=== PATIENT | male | born 1945 | race Caucasian/White ===

== ENCOUNTER 2020-05-30 06:11 | Inpatient (IN) ==
[2020-05-30] MEDS ORDERED: Ringers Solution, Lactated 1,000 ML IVC SCH ×2 (06:30→06:45)
[2020-05-30] MEDS ORDERED: Ondansetron 4 MG/2 ML VIAL IVP PRN ×2 (06:41→11:36)
[2020-05-30] MEDS ORDERED: *HR* OxyCODONE Immed Rel 5 MG TABLET PO PRN (06:41)
[2020-05-30] MEDS ORDERED: Heparin 1,000 UNITS/500 mL 500 ML ONE (07:07)
[2020-05-30] MEDS ORDERED: Heparin 1,000 UNITS/500 mL 2,000 ML ONE (07:07)
[2020-05-30] MEDS ORDERED: Isovue-300 50ML VIAL ONE (07:08)
[2020-05-30] MEDS ORDERED: *HR* FentaNYL (PF) 100 MCG/2 ML VIAL ONE (07:15)
[2020-05-30] MEDS ORDERED: *HR* Propofol 200 MG/20 ML VIAL IVP ONE (07:15)
[2020-05-30] MEDS ORDERED: Ondansetron 4 MG/2 ML VIAL ONE (07:16)
[2020-05-30] MEDS ORDERED: Lidocaine -MPF 2% 2 ML VIAL ONE ×2 (07:16→10:27)
[2020-05-30] MEDS ORDERED: *HR* Rocuronium Bromide 50 MG/5 ML VIAL ONE ×2 (07:16→08:31)
[2020-05-30] MEDS ORDERED: Lidocaine HCL 4 ML Topical Solution (Laryng-O-Jet Kit Sterile Pak) TP ONE (07:16)
[2020-05-30] MEDS ORDERED: *HR* Succinylcholine 200 MG/10 ML VIAL IVP ONE (07:16)
[2020-05-30] MEDS ORDERED: Dexamethasone 4 MG/ML VIAL ONE (07:16)
[2020-05-30] MEDS ORDERED: *HR* Vasopressin 20 UNIT/ML VIAL ONE (07:20)
[2020-05-30] MEDS ORDERED: NiCARdipine 2.5 MG/10 ML Syringe IVPB ONE (07:20)
[2020-05-30] MEDS ORDERED: EPHEDrine 50 MG/ML VIAL ONE (07:24)
[2020-05-30] MEDS ORDERED: *HR* Heparin 5,000 UNIT/ML VIAL ONE (07:25)
[2020-05-30] MEDS ORDERED: *HR* Phenylephrine 10 MG/ML VIAL ONE (07:26)
[2020-05-30] MEDS ORDERED: ceFAZolin 1,000 MG, Sodium Chloride IRRigation 1,000 ML IR ONE (07:45)
[2020-05-30] MEDS ORDERED: Lidocaine Jelly 6ml 1 APPL/6 ML JEL.PF.APP ONE (07:49)
[2020-05-30] MEDS ORDERED: *HR* PHENYLEPHRINE 1,000 MCG/10 ML SYRINGE IVP ONE (08:29)
[2020-05-30] MEDS ORDERED: Vancomycin 1,000 MG VIAL ONE (08:37)
[2020-05-30] MEDS ORDERED: Sugammadex Sodium 200 MG/2 ML VIAL IV ONE (09:46)
[2020-05-30] MEDS: *HR* HYDROmorphone PF 0.5 MG/0.5 ML SYRINGE IVP PRN ×4 (10:45→11:05)
[2020-05-30] MEDS ORDERED: *HR* Labetalol 20 MG/4 ML SYRINGE IVP PRN (11:36)
[2020-05-30] MEDS ORDERED: Acetaminophen 325 MG TABLET PO PRN (11:36)
[2020-05-30] MEDS ORDERED: *HR* HYDROcodone/Acet 5/325 mg TABLET PO PRN (11:36)
[2020-05-30] MEDS ORDERED: Naloxone 0.4 MG/ML INJ IVP PRN (11:36)
[2020-05-30] MEDS: 0.9 % Sodium Chloride 1,000 ML IVC SCH (12:29)
[2020-05-30] MEDS ORDERED: Mag Hydrox/Al Hydrox/Simeth 30 ML UDC PO PRN (18:19)
[2020-05-31] MEDS: 0.9 % Sodium Chloride 1,000 ML IVC SCH (00:57)
[2020-05-31 07:15] VITALS: BP 114/77
== END 2020-05-31 10:27 | disposition home or self-care (01) | DRG 269 ==
LOC: SAMDAY 06:11 → 2NNU 11:31
PROVIDERS: ADMIT Surgery Vascular Surgery; ATTEND Surgery Vascular Surgery